=== PATIENT | male | born 1985 | race Caucasian/White ===

== ENCOUNTER 2021-06-29 15:39 | Emergency (ER) | payer OTHER ==
[~2021-06-29] VITALS: Ht 185.4 cm; Wt 99.8 kg
--- NOTE | 2021-06-29 15:44 | NUR ---
[place] [employer] CALLED AND INFORMED PT CALLED [place] AND STATED "HE IS SUCIDIAL AND THREATENING TO SHOOT UP [facility] IF HE HAS TO RETURN THERE." PER JENNIFER VÁZQUEZ "THEY ARE UNSURE IF THE PATIENT IS ARMED AT THIS TIME." [place] PD ARE ON THEIR WAY TO ASSESS THE SITUATION AND ENSURE PATIENT IS NOT A THREAT.
[2021-06-29 16:30] VITALS: BP 131/79
--- NOTE | 2021-06-29 16:35 | NUR ---
TO ER BED 6 WITH SON
--- NOTE | 2021-06-29 16:42 | NUR ---
30 Y/O MALE C/O HEADACHE AND LEG PAIN 02/22 DESCRIBES THROBBING, BLURED VISION X YESTERDAY. BLOOD SUGAR 559 , P 133 AT THIS TIME. DENIES FEVER/CHILLS. DENIES N/V/D. DENIES PMH NKA
[2021-06-29] MEDS ORDERED: AMOX-1000 PO (17:09)
[2021-06-29] MEDS ORDERED: IBUP-2213 PO (17:11)
--- NOTE | 2021-06-29 17:21 | NUR ---
Patient discharged with v/s stable. Written and verbal after care instructions given and explained. Patient alert, oriented and verbalized understanding of instructions. Ambulatory with steady gait. All questions addressed prior to discharge. ID band removed. Patient advised to follow up with PMD. Rx of AMOXICILLIN/POTASSIUM, IBU given. Patient educated on indication of medication including possible reaction and side effects. Opportunity to ask questions provided and answered.
--- NOTE | 2021-06-29 17:22 | NUR ---
The patient's care was reviewed and supervised by Jovita Dey RN.
[2021-06-29 17:40] VITALS: BP 127/69
== END 2021-06-29 17:21 | disposition home or self-care (01) ==
LOC: MED 15:39
DX: K08.89 Other specified disorders of teeth and supporting structures (principal); F12.90 Cannabis use, unspecified, uncomplicated; Z79.899 Other long term (current) drug therapy
CPT/HCPCS: 99283

== ENCOUNTER 2022-08-29 18:44 | Emergency (ER) | payer MEDICAID, OTHER ==
[~2022-08-29] VITALS: Ht 185.4 cm; Wt 108.9 kg
[~2022-08-29 18:44] MED LIST: AMOX-1000 PO; IBUP-2213 PO
[2022-08-29 18:49] VITALS: BP 140/75
[2022-08-29] MEDS ORDERED: AMOX-999 PO (19:35)
--- NOTE | 2022-08-29 19:42 | NUR ---
ATTEMPTED TO CALL PT FOR DISCHARGE INSTRUCTIONS. PT NOT IN LOBBY OR OUTSIDE. PT GIVEN INSTRUCTIONS BY PA. NO CONTACT WITH PT. PT LEFT WITHOUT SIGNING DC INSTRUCTIONS.
== END 2022-08-29 19:42 | disposition home or self-care (01) ==
LOC: MED 18:44
DX: K04.7 Periapical abscess without sinus (principal)
CPT/HCPCS: 99283